=== PATIENT | male | born 1950 | race Caucasian/White ===

== ENCOUNTER 2020-07-19 17:13 | Emergency (ER) | payer BC, OTHER ==
--- NOTE | 2020-07-19 21:39 | RAD ---
LEFT FOOT THREE VIEWS: Date: 07-19-2020 FINDINGS: There appears to be a small cortical avulsion from the tuberosity at the base of the fifth metatarsal laterally. There does not appear to be a through and through fracture here. The other bones of the f oot appeared intact. IMPRESSION: Tiny cortical avulsion from the base of the fifth metatarsal. POS: HOME
== END 2020-07-19 17:55 | disposition home or self-care (01) ==
LOC: BURERS 17:13
DX: S92.352A Displaced fracture of fifth metatarsal bone, left foot, initial encounter for closed fracture (principal); W22.8XXA Striking against or struck by other objects, initial encounter